=== PATIENT | female | born 1985 | race American Indian/Alaskan Native ===

== ENCOUNTER 2022-04-30 08:38 | Emergency (ER) | payer SELFPAY ==
[2022-04-30 08:47] VITALS: BP 148/90
[2022-04-30] MEDS ORDERED: LIDOCAINE-MPF (1%) 10 MG/1 ML VIAL 5 ML INFILTRATI ONE (10:27)
[2022-04-30] MEDS ORDERED: IBUPROFEN 800 MG TAB PO ONE (10:27)
[2022-04-30] MEDS ORDERED: dexAMETHasone 4 MG/ML VIAL IV ONE (10:27)
--- NOTE | 2022-04-30 10:29 | Emergency Department Report ---
ED ENT HPI - General Chief complaint: Skin/Abscess/Foreign Body Stated complaint: RIGHT SIDE JAW SWOLLEN Time Seen by Provider: 04/30/22 09:17 Source: patient Mode of arrival: Ambulatory Limitations: No Limitations - History of Present Illness Initial comments: 36 yo comes to er with right upper maxillary/molar pain - acute over night no trismus no ludwigs taking po controlling secretions no abscess She states she is new to the area and does not have a dentist MD complaint: tooth pain -: Sudden, hour(s) Severity: moderate Quality: stabbing Consistency: constant Improves with: none Worsens with: none Associated Symptoms: toothache - Related Data Previous Rx's Medication Instructions Recorded Last Taken Type Amoxicillin [Trimox CAP] 500 mg PO TID #30 capsule 04/30/22 Unknown Rx Allergies Allergy/AdvReac Type Severity Reaction Status Date / Time No Known Allergies Allergy Unverified 04/30/22 08:47 ED Dental HPI - General Chief complaint: Skin/Abscess/Foreign Body Stated complaint: RIGHT SIDE JAW SWOLLEN Time Seen by Provider: 04/30/22 09:17 Source: patient Mode of arrival: Ambulatory Limitations: No Limitations - Related Data Previous Rx's Medication Instructions Recorded Last Taken Type Amoxicillin [Trimox CAP] 500 mg PO TID #30 capsule 04/30/22 Unknown Rx Allergies Allergy/AdvReac Type Severity Reaction Status Date / Time No Known Allergies Allergy Unverified 04/30/22 08:47 ED Review of Systems ROS: Stated complaint: RIGHT SIDE JAW SWOLLEN Other details as noted in HPI Comment: All other systems reviewed and negative ED Past Medical Hx - Past Medical History Previous Medical History?: Yes - Surgical History Past Surgical History?: No - Family History Family history: no significant - Social History Smoking Status: Never Smoker Substance Use Type: None - Medications Home Medications: Home Medications Medication Instructions Recorded Confirmed Last Taken Type Amoxicillin [Trimox CAP] 500 mg PO TID #30 capsule 04/30/22 Unknown Rx ED Physical Exam - General Limitations: No Limitations General appearance: alert, in no apparent distress - Head Head exam: Present: atraumatic, normocephalic - Eye Eye exam: Present: normal appearance - ENT ENT exam: Present: mucous membranes moist - Expanded ENT Exam Expanded Mouth exam: Absent: trismus, muffled voice Teeth exam: Present: dental caries 1 - Other (caries) - Neck Neck exam: Present: normal inspection - Respiratory Respiratory exam: Present: normal lung sounds bilaterally. Absent: respiratory distress - Cardiovascular Cardiovascular Exam: Present: regular rate, normal rhythm. Absent: systolic murmur, diastolic murmur, rubs, gallop - GI/Abdominal GI/Abdominal exam: Present: soft, normal bowel sounds - Extremities Exam Extremities exam: Present: normal inspection - Back Exam Back exam: Present: normal inspection - Neurological Exam Neurological exam: Present: alert, oriented X3 - Psychiatric Psychiatric exam: Present: normal affect, normal mood - Skin Skin exam: Present: warm, dry, intact, normal color. Absent: rash ED Course Vital Signs 04/30/22 08:44 Temperature 98.7 F Pulse Rate 89 Respiratory 20 Rate Blood Pressure 148/90 [Right] O2 Sat by Pulse 100 Oximetry ED Medical Decision Making - Medical Decision Making Vital Signs 04/30/22 08:44 Temperature 98.7 F Pulse Rate 89 Respiratory 20 Rate Blood Pressure 148/90 [Right] O2 Sat by Pulse 100 Oximetry vss taking po no trismus medicated with rocephin, toradol, and decadron dc home with dc plan of care including diet, meds, activity and follow up she verbalizes understanding of plan of care. - Differential Diagnosis dental disease Critical care attestation.: If time is entered above; I have spent that time in minutes in the direct care of this critically ill patient, excluding procedure time. ED Disposition Clinical Impression: Pain, dental Disposition: 01 HOME / SELF CARE / HOMELESS Is pt being admited?: No Does the pt Need Aspirin: No Condition: Stable Instructions: Acute Pain, Adult Additional Instructions: med as ordered today alternate motrin and tylenol for pain stay well hydrated with water Prescriptions: Amoxicillin [Trimox CAP] 500 mg PO TID #30 capsule Referrals: PRIMARY CARE, [Primary Care Provider] - 3-[address] [facility] [Outside] - 3-5 Days [facility] [Outside] - 3-5 Days Forms: Work/School Release Form(ED) Time of Disposition: 10:32
== END 2022-04-30 11:42 | disposition home or self-care (01) ==
LOC: ED 08:38
DX: K08.89 Other specified disorders of teeth and supporting structures (principal)
CPT/HCPCS: 96372; 96374; 99282; J0696; J1100; J3490